=== PATIENT | male | born 1980 | race Caucasian/White ===

== ENCOUNTER 2020-03-10 09:51 | Outpatient (CLI) | payer MEDICARE, SELFPAY ==
[2020-03-10 10:43] LABS: Basophils Absolute Auto 0.1 K/mm3 (0.0-0.1); Basophils Percent Auto 0.8 % (0.2-1.2); Eosinophils Absolute Auto 0.2 K/mm3 (0-0.3); Hematocrit 44.2 % (42.0-52.0); Hemoglobin 15.2 g/dL (14.0-18.0); Immature Granulocyte Absolute 0.01 K/mm3 (0.00-0.031); Immature Granulocyte Percent A 0.2 % (0-0.5); Lymphocytes Absolute Auto 1.47 K/mm3 (0.9-3.2); Lymphocytes Percent Auto 24.6 % (18.3-44.2); Mean Corpuscular HGB Conc 34.4 g/dl (32-36); Mean Corpuscular Hemoglobin 30.7 pg (26-34); Mean Corpuscular Volume 89.3 fl (80-100); Mean Platelet Volume 9.7 fl (7.4-10.4); Monocytes Absolute Auto 0.6 K/mm3 (0.1-0.6); Monocytes Percent Auto 9.4 % (2.6-8.5); Neutrophils Absolute Auto 3.7 K/mm3 (1.3-6.7); Platelet Count Result 187 k/mm3 (150-375); Red Blood Count 4.95 M/mm3 (4.6-6.20); Red Cell Distribution Width 12.5 % (11.5-14.5)
[2020-03-10 10:58] LABS: Alanine Aminotransferase 55 U/L (4-50); Albumin Level 4.8 g/dL (3.5-5.1); Alkaline Phosphatase 65 U/L (38-126); Aspartate Amino Transferase 33 U/L (17-59); Bilirubin,Total 0.6 mg/dL (0.2-1.3); Blood Urea Nitrogen 15 mg/dL (9-20); Calcium 9.4 mg/dL (8.4-10.2); Carbon Dioxide 27 mmol/L (22-30); Chloride 102 mmol/L (98-107); Cholesterol 205 mg/dL (0-200); Estimated Glomerular Filt Rate > 60; Glucose 88 mg/dL (75-110); HDL Direct 50 mg/dL; Potassium 4.4 mmol/L (3.4-5.0); Sodium 138 mmol/L (137-145); Triglycerides 76 mg/dL (<150)
[2020-03-10 11:12] LABS: LDL Cholesterol Direct 129 mg/dL
[2020-03-10 11:23] LABS: Free T4 Free Thyroxine 0.95 ng/mL (0.78-2.19); Vitamin D 25 Hydroxy 58.2 ng/mL
[2020-03-10 11:30] LABS: Total Triiodothyronine (T3) 1.62 NG/ML (0.97-1.69)
[2020-03-13 16:51] LABS: Testosterone Free 87.4 pg/mL (35.0-155.0); Testosterone Total 560 ng/dL (250-1100)
== END 2020-03-10 09:52 | disposition home or self-care (01) ==
PROVIDERS: PCP Family Medicine
DX: F20.9 Schizophrenia, unspecified (principal); N52.9 Male erectile dysfunction, unspecified; E55.9 Vitamin D deficiency, unspecified
CPT/HCPCS: 36415; 80053; 80061; 82306; 84402; 84403; 84439; 84443; 84480; 85025

== ENCOUNTER 2020-03-23 08:00 | Outpatient (RCR) | payer MEDICARE, SELFPAY ==
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
--- NOTE | 2020-03-28 12:51 | PCPTNOTE ---
Patient called & cancelled all his remaining scheduled appointment this date due to he feels he is better and does not need therapy.
--- NOTE | 2020-03-28 13:17 | PCPTNOTE ---
Admitting Provider: Attending Provider: Anthony Morgan MD Patient:Edmund Pinto Date of :1980 Discharge Note Patient has not returned for any further treatments since 03/23/2020, therefore he will be discharged at this time. Patient?s initial visit was on 03/17/2020 10:45 and he had a total of 2 visits. The goals have been not been met due to limited visits attended. Thank you for referring this patient to [facility]. Please review, sign, date and return this discharge summary ZULEYKA. I have been updated about the patient's current status and I agree with discharge from the above service at this time. Referring Physician Date
== END 2020-03-28 15:43 | disposition home or self-care (01) ==
LOC: ANHPT 08:00
PROVIDERS: PCP Family Medicine; Visit Provider Family Medicine
DX: M54.5 Low back pain (principal)
CPT/HCPCS: 97110; 97161

== ENCOUNTER 2020-09-01 08:09 | Emergency (ER) | payer MEDICARE, SELFPAY ==
[2020-09-01 08:18] VITALS: BP 120/75; PULSE 73; RESP 16; TEMP 36.8; O2SAT 100
--- NOTE | 2020-09-01 09:26 | ED.BACK ---
HPI - Back Pain/Injury General Chief Complaint: Back Pain/Injury Stated Complaint: back pain Time Seen by Provider: 09/01/20 08:19 History of Present Illness HPI Narrative: Patient is a 39-year-old male who presents ER with low back pain. Reports he has been working on a car at home that is caused him to be in awkward positions for hours at a time. No direct trauma or injury. No lower extremity numbness or tingling. No difficulty with urination. Reports has been trying ibuprofen without relief. Reports its more on the right side than left. It seems deeper in his back. No urinary frequency/dysuria. Related Data Home Medications Medication Instructions Recorded Confirmed aripiprazole [Abilify Maintena] mg IM 09/01/20 Allergies Allergy/AdvReac Type Severity Reaction Status Date / Time No Known Allergies Allergy Verified 09/01/20 08:24 Review of Systems Constitutional: Constitutional: Denies chills, Denies fever(s) and Denies weakness Genitourinary: Genitourinary: Denies dysuria and Denies urinary frequency Musculoskeletal: Musculoskeletal: Reports back pain and Reports muscle cramps PMFSH Past Medical History Medical History (Updated 09/01/20 @ 09:28 by Sylvester Roque MD) Schizophrenia Surgical History Surgical History (Updated 09/01/20 @ 09:27 by Sylvester Roque MD) No history of previous surgery Social History Social History Gender identity (if verbalized by the patient): Male Exam Narrative: Exam Narrative: GENERAL: Well-appearing, well-nourished, and in no acute distress. HEAD: Normocephalic, atraumatic. CHEST: Clear to auscultation. No respiratory distress. HEART: Regular rate and rhythm. Normal peripheral pulses. BACK: No reproducible midline or paraspinal muscular tenderness. No visual evidence of trauma. Extremities: Normal strength, ambulates without difficulty. SKIN: Warm, dry, no rash. NEURO: Alert and oriented x3. Course Course Emergency Course: Discharge home with supportive therapy. No trauma midline tenderness or need for x-ray. Vital Signs Vital signs: Vital Signs Temperature 98.2 F 09/01/20 08:18 Pulse Rate 73 09/01/20 08:18 Respiratory Rate 16 09/01/20 08:18 Blood Pressure 120/75 09/01/20 08:18 Pulse Oximetry 100 09/01/20 08:18 Temperature 98.2 F 09/01/20 08:18 Pulse Rate 73 09/01/20 08:18 Respiratory Rate 16 09/01/20 08:18 Blood Pressure 120/75 09/01/20 08:18 Pulse Oximetry 100 09/01/20 08:18 Discharge Plan Discharge Clinical Impression: Strain of lumbar region Patient Disposition: Home, Self-Care Condition: Stable Instructions: Acute Low Back Pain (ED), Lower Back Exercises (ED) Additional Instructions: Return to the ER if you have increased pain in your back, you develop lower extremity weakness/numbness/paralysis, you have numbness or tingling in your private parts, or you are unable to control your ability to urinate/stool. Prescriptions: New cyclobenzaprine 10 mg tablet 10 mg PO TID PRN (Reason: muscle spasm) Qty: 20 RF: 0 naproxen 500 mg tablet 500 mg PO BID Qty: 20 RF: 0 No Action Abilify Maintena 400 mg suspension,extended rel recon IM RF: 0 Follow-up/Referrals: Anthony Morgan MD [Primary Care Provider] - 1 Week
== END 2020-09-01 09:34 | disposition home or self-care (01) ==
PROVIDERS: Emergency Provider Emergency Medicine; PCP Family Medicine
DX: S39.012A Strain of muscle, fascia and tendon of lower back, initial encounter (principal); X50.1XXA Overexertion from prolonged static or awkward postures, initial encounter; F20.9 Schizophrenia, unspecified
CPT/HCPCS: 99283

== ENCOUNTER 2021-04-01 14:50 | Emergency (ER) | payer MEDICARE, SELFPAY ==
--- NOTE | ~2021-04-01 | XR_ITS ---
EXAMINATION: XR shoulder RT min 2V DATE: 04/01/2021 15:23 INDICATION: Right shoulder dislocation. Right shoulder pain. TECHNIQUE: 4 views of right shoulder were obtained. COMPARISON: None. FINDINGS: Bone alignment is normal. No fracture. Joint spaces are well maintained. IMPRESSION: 1. Normal right shoulder. Reviewed, dictated and finalized at location A. IMPRESSION: 1. Normal right shoulder.
[2021-04-01 14:51] VITALS: BP 124/87; PULSE 86; RESP 18; TEMP 36.4; O2SAT 98
--- NOTE | 2021-04-01 15:19 | ED.GENADULT ---
HPI - General Adult General Chief complaint: Extremity Injury, Lower Stated complaint: shoulder dislocation yesterday, ongoing pain today Time Seen by Provider: 04/01/21 15:00 Source: patient and RN notes reviewed Mode of arrival: ambulatory Limitations: no limitations History of Present Illness HPI narrative: 40 years old white male presented to the ED with right shoulder pain. Patient is telling me that he was playing martial art, somehow the ball of his right shoulder came out and was able to manage to put it back in 1 minute. Currently no dislocation but patient complaining of soreness at the right shoulder. Patient denies history of dislocation. Currently denies any fever, chills, nausea, vomiting, chest pain, back pain, headache, neck pain. Related Data Home Medications Medication Instructions Recorded Confirmed aripiprazole [Abilify Maintena] mg IM 09/01/20 Allergies Allergy/AdvReac Type Severity Reaction Status Date / Time No Known Allergies Allergy Verified 09/01/20 08:24 Review of Systems Review of Systems: Narrative: CONSTITUTIONAL: Denies fever, chills, or sweats. EYES: Denies visual changes, redness, or discharge. ENT: Denies rhinorrhea, congestion, sore throat, or otalgia. CARDIOVASCULAR: Denies chest pain, palpitations, or edema. RESPIRATORY: Denies cough or dyspnea. GASTROINTESTINAL: Denies abdominal pain, nausea, vomiting, or diarrhea. GENITOURINARY: Denies dysuria or hematuria. SKIN: Denies rash or itching. MUSCULOSKELETAL: Denies back pain, joint pain, or myalgia. NEUROLOGIC: Denies headache, numbness, or weakness. PSYCHIATRIC: Denies anxiety or depression. PMFSH Past Medical History Medical History Schizophrenia Surgical History Surgical History No history of previous surgery Social History Social History Gender identity (if verbalized by the patient): Male Exam Narrative: Exam Narrative: General appearance: Well-developed, well-nourished Skin: Normal color Head: Normocephalic, nontraumatic Chest and respiratory: Airway patent, no respiratory distress, no accessory muscle use Heart: Regular rate/rhythm Vascular: Normal peripheral pulses, normal capillary refill. Musculoskeletal: Slight diffuse tenderness right shoulder mainly anteriorly, no deformity, no swelling, no erythema or warmth Neurologic: Alert and oriented ?3, CLINICAL DATA COORDINATOR is normal as tested, no gross motor deficit Course Course Emergency Course: Stable, x-ray right shoulder ordered. Further plan to follow Vital Signs Vital signs: Vital Signs Temperature 36.4 C 04/01/21 14:51 Pulse Rate 86 04/01/21 14:51 Respiratory Rate 18 04/01/21 14:51 Blood Pressure 124/87 04/01/21 14:51 Pulse Oximetry 98 04/01/21 14:51 Temperature 36.4 C 04/01/21 14:51 Pulse Rate 86 04/01/21 14:51 Respiratory Rate 18 04/01/21 14:51 Blood Pressure 124/87 04/01/21 14:51 Pulse Oximetry 98 04/01/21 14:51 Medical Decision Making MDM Narrative Medical decision making narrative: X-ray right shoulder ordered. Post dislocation shoulder pain. Shoulder embolization, follow-up with Ortho for physical therapy management. Differential Diagnosis Differential Diagnosis: Post dislocation syndrome Vital Signs Vital Signs: Vital Signs Temperature 36.4 C 04/01/21 14:51 Pulse Rate 86 04/01/21 14:51 Respiratory Rate 18 04/01/21 14:51 Blood Pressure 124/87 04/01/21 14:51 Pulse Oximetry 98 04/01/21 14:51 Temperature 36.4 C 04/01/21 14:51 Pulse Rate 86 04/01/21 14:5
== END 2021-04-01 15:52 | disposition home or self-care (01) ==
PROVIDERS: Emergency Provider Emergency Medicine; PCP Family Medicine
DX: S43.004A Unspecified dislocation of right shoulder joint, initial encounter (principal); F20.9 Schizophrenia, unspecified; X50.9XXA Other and unspecified overexertion or strenuous movements or postures, initial encounter; Y93.75 Activity, martial arts
CPT/HCPCS: 73030; 99283; A4565

== ENCOUNTER 2021-06-29 08:25 | Outpatient (CLI) | payer MEDICARE, SELFPAY ==
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
== END 2021-06-29 08:26 ==
PROVIDERS: PCP Family Medicine; Visit Provider Nurse Practitioner
DX: M47.814 Spondylosis without myelopathy or radiculopathy, thoracic region (principal); M47.816 Spondylosis without myelopathy or radiculopathy, lumbar region
CPT/HCPCS: 72070; 72100

== ENCOUNTER 2022-10-17 08:25 | Day surgery (SDC) | payer MEDICARE, SELFPAY ==
[2022-10-08 10:03] VITALS: BMI 27.5
--- NOTE | 2022-10-08 10:23 | SUR.PREOP ---
DURING PREOP PHONE INTERVIEW, PT STATED HE HAD ANOTHER LIPOMA ON HIS BACK THAT HE WOULD LIKE DR ROBLES TO REMOVE. I ASKED PT IF HE DISCUSSED THIS AT HIS LAST APPT WITH DR ROBLES ON 09/25. PT STATED HE DID NOT. INSTRUCTED PT TO CALL DR TOPETE OFFICE TODAY REGARDING ADDING ANOTHER MASS REMOVAL ON HIS BACK FOR DOS. PT VERBALIZED UNDERSTANDING.
--- NOTE | 2022-10-16 09:43 | P.PNAN_ITS ---
Anes - Initial Pre Proc Eval Procedure: Operation Date: 10/17/22 10:30 Proposed Procedures p Excisional Biopsy Subcutaneous Mass-Right Upper Extremity x3 - Zaida Brown MD s Excisional Biopsy Subcutaneous Mass-Left Abdominal Wall - Zaida Brown MD s Excisional Biopsy Subcutaneous Mass-Left Thigh - Zaida Brown MD Date/Time: 10/16/22 09:43 Surgeon: Zaida Brown MD Pre Op Diagnosis: Multiple Suqutaneous Masses Patient Data Age: 41 Gender: M Height: 1.83 m Weight: 92 kg Allergies Allergy/AdvReac Type Severity Reaction Status Date / Time No Known Allergies Allergy Verified 10/17/22 09:16 Home Medications Medication Instructions Recorded Confirmed Type aripiprazole 400 mg intramuscular 400 mg IM MONTHLY 09/01/20 10/17/22 History suspension,extended release (Abilify Maintena) hydrocodone 5 mg-acetaminophen 325 1 tablet PO Q6H PRN pain #20 tabs 10/17/22 Rx mg tablet Patient hx anesthesia problems: none Family hx anesthesia problems: none Results Review: All pre-operative results and documents have been reviewed as part of the pre- operative evaluation. [facility] Past Medical History Medical History (Updated 09/25/22 @ 10:32 by Pavithra Silvestre CMA) Lipoma Schizophrenia Surgical History Surgical History (Updated 09/25/22 @ 09:53 by Ciara Felder) Hx of hemorrhoidectomy No history of previous surgery Hemorrhoid banding in 2017 Family History Family History Grandparent Alcoholism Cancer Hypertension Heart problem Cerebrovascular accident Social History Social History (Updated 09/25/22 @ 09:54 by Ciara Felder) Years smoked: 20 Smoking status: Current every day smoker Tobacco type: cigarettes and cigars Smokeless tobacco user: other Second hand tobacco smoke exposure: Yes Additional smoking assessment comments: PT STATES HE HAS SMOKE CIGARS FOR 6 MONTHS, PRIOR TO THAT DAILY CIGARETTES Alcohol intake: never Substance use: current Substance use type: marijuana Last use: DAILY Gender identity (if verbalized by the patient): Male Spiritual care concerns: No Anes - Eval Final PreProcedure Day of Procedure 10/16/22 09:43 Patient weight: overweight Heart: regular rate and rhythm Lungs: clear to auscultation Airway: Mallampati scale class II Neurological: alert and oriented Last oral intake: >/= 8 hours ASA classification: III Emergent: no Anesthetic plan: proceed Anesthesia type and monitoring: general GIVS and standard monitoring Results Review: All pre-operative results and documents have been reviewed as part of the pre- operative evaluation. Informed Consent: The patient's anesthetic plan and its attendant risks and benefits were discussed with the patient/family/POA. Questions were solicited and answers provided to the satisfaction of the patient/family/POA.
[2022-10-17 09:10] VITALS: BP 123/93; PULSE 69; RESP 20; TEMP 36.9; O2SAT 99
[2022-10-17] MEDS: LACTATED RINGERS 1,000 ML 150 ML IV CONT (09:28)
[2022-10-17] MEDS: LACTATED RINGERS 1,000 ML 30 ML IV CONT (09:45)
--- NOTE | 2022-10-17 10:13 | WPDHPUPDATE1 ---
History and Physical Update Update Date/Time: 10/17/22 10:13 History and Physical has been reviewed, including an updated exam of the patient. There are NO changes in the patient's condition. Risks, benefits, and alternatives have been discussed and questions answered. Patient agrees to proceed with procedure. There is an additional mass in the L flank
[2022-10-17] MEDS: ceFAZolin 2 GM/D5W 50 ML 2 GM/50 ML BAG IVPB (11:01)
[2022-10-17] MEDS: LIDO 1%/EPINEPHRINE 1:100,000 20 ML VIAL 30 ML INFILTRATE (11:03)
[2022-10-17 11:18] VITALS: BP 104/62; PULSE 68; RESP 16; O2SAT 100
[2022-10-17 11:35] VITALS: BP 101/61; PULSE 62; RESP 16; O2SAT 99
[2022-10-17 11:50] VITALS: BP 107/62; PULSE 64; RESP 16
--- NOTE | 2022-10-17 12:03 | W.PM.PROC2 ---
Procedure Note - Detailed Date of Procedure 10/17/22 Pre-op Diagnosis Multiple subcutaneous masses, most likely lipomas Post-op Diagnosis Same Procedure Performed excisional biopsy multiple subcutaneous masses located in the left flank, left lower abdominal wall, left anterior thigh, right elbow, right forearm Surgeon Zaida Brown MD Anesthesia MAC and Local Indications 41-year-old male presenting to the office with multiple growing subcutaneous masses. Reports these are quite symptomatic especially to pressure or palpation. Findings 1 x 1 cm left flank mass, 1 x 1 cm left lower quadrant abdominal wall mass, 1 x 1 cm left anterior thigh mass, 2 x 1 cm right elbow mass, 2.5 x 2 cm right forearm mass Description of Procedure The patient was taken to the operating room and placed in the supine position. After adequate induction of MAC anesthesia, the patient was prepped and draped in the normal sterile fashion. A time-out was then done to verify the patient's identity, as well as the procedure being performed. Began by localizing all these areas. Once these areas were locally anesthetized, I went ahead and marked all the areas. I began by excising the area in the left flank. A incision was made in the dermis over the subcutaneous mass. Once into the subcutaneous tissue a well-circumscribed mass was encountered and excised. I then gained hemostasis with the Bovie cautery. Subcutaneous tissue was closed with 3-0 Vicryl suture, skin was closed with 4-0 Monocryl subcuticular suture. This mass measured approximately 1 x 1 cm. Next I made incision over the left lower quadrant abdominal wall mass. Again the incision was made through the dermis and once into the subcutaneous tissue a 1 x 1 cm mass was encountered. This was again removed in full and subsequently closed as before. The left thigh mass was then excised in similar fashion again measuring 1 x 1 cm. I then made an incision in the right forearm this mass was slightly larger at 2 x 1 cm. Finally the last incision was made around the area of the right elbow this mass was the largest measuring 2.5 x 2 cm. All these masses were sent to pathology for further review and all incisions had Dermabond placed after closure. The patient tolerated these procedures well and was alert and awake in the operating room postoperatively. He will be sent to the recovery room in stable condition. Estimated Blood Loss 5 Drains No Packing No Pathology Yes Complications No immediate complications Condition Stable Disposition PACU [facility] Billing Surgery - Charge Forward: Surgery Billing
--- NOTE | 2022-10-17 12:03 | SUR.PHASEII ---
PT AWAKE AND ALERT. PT GETTING DRESSED. ASKED PT TO GO SLOW DUE TO ANESTHESIA. DENIES PAIN. ASKING TO GO HOME
--- NOTE | 2022-10-17 12:08 | SUR.PHASEII ---
NOTICED IN DISCHARGE INSTRUCTIONS THAT PRESCRIPTION FROM DR ROBLES WAS REJECTED. CALLED DR ROBLES CELL, VM LEFT.
--- NOTE | 2022-10-17 12:34 | SUR.PHASEII ---
1210; PT AND SIG OTHER INFORMED THAT DR ROBLES ATTEMPTED TO SEND A SCRIPT FOR PAIN MED TO PT'S PHARMACY AND IT WAS REJECTED. ALSO THAT RN CALLED DR ROBLES AND LEFT A VM ON HIS CELL PHONE. PT VERBALIZED UNDERSTANDING. PT STATES HE HAS MARIJUANA AT HOME HE CAN USE. DR CAMPBELL CALLED OVER TO PT ROOM, NOTIFIED OF PT WANTING TO USE MARIJUANA TODAY, DR CAMPBELL INSTRUCTED PT NOT TO USE TODAY. PT VERBALIZED UNDERSTANDING.
--- NOTE | 2022-10-17 12:55 | WPDANESPN ---
Anes - Prog Note Post-Op Date/Time: 10/17/22 12:55 Cardiovascular status: normal Respiratory status: normal Airway patency: baseline Mental status: baseline Post-Op hydration status: normal Vital Signs: Last Vital Signs Temp 36.9 C 10/17/22 09:10 Pulse 64 10/17/22 11:50 Resp 16 10/17/22 11:50 BP 107/62 10/17/22 11:50 Pulse Ox 99 10/17/22 11:35 O2 Del Method Room Air 10/17/22 11:50 Pain Score (VAS): 0 I/O: Intake & Output 10/16/22 10/17/22 10/17/22 23:59 07:59 15:59 Intake Total 100 Balance 100 Post-procedural complaints: none Patient Feedback: Patient satisfied with anesthetic care. Other Findings: Patient vital signs back to baseline. Patient denies nausea and vomiting. Patient's pain under control. Patient OK for discharge.
== END 2022-10-17 12:15 | disposition home or self-care (01) ==
PROVIDERS: PCP Internal Medicine; Visit Provider Surgery
PROC: (CPT 27327; principal; 2022-10-17 10:30)
PROC: (CPT 27327; 2022-10-17 10:30)
PROC: (CPT 27327; 2022-10-17 10:30)
DX: R22.9 Localized swelling, mass and lump, unspecified (principal)
CPT/HCPCS: 27327; 25075; 21930; 22902; 24075

== ENCOUNTER 2022-10-17 09:00 | Outpatient (NON) | payer MEDICARE, SELFPAY | END 2022-10-17 09:01 | disposition home or self-care (01) | PROVIDERS: PCP Internal Medicine; Visit Provider Surgery | DX: D17.30 Benign lipomatous neoplasm of skin and subcutaneous tissue of unspecified sites (principal) | CPT/HCPCS: 88304 ==

== ENCOUNTER 2024-07-16 10:00 | Outpatient (CLI) | payer MEDICARE, SELFPAY ==
[2024-07-16 16:32] LABS: Basophils Absolute Auto 0.1 K/mm3 (0.0-0.1); Basophils Percent Auto 0.7 % (0.2-1.2); Eosinophils Absolute Auto 0.4 K/mm3 (0-0.3); Eosinophils Percent Auto 5.5 % (0-4.4); Hematocrit 44.6 % (42.0-52.0); Hemoglobin 14.8 g/dL (14.0-18.0); Immature Granulocyte Absolute 0.01 K/mm3 (0.00-0.031); Immature Granulocyte Percent A 0.1 % (0-0.5); Lymphocytes Absolute Auto 1.69 K/mm3 (0.9-3.2); Lymphocytes Percent Auto 23.2 % (18.3-44.2); Mean Corpuscular HGB Conc 33.2 g/dl (32-36); Mean Corpuscular Hemoglobin 30.8 pg (26-34); Mean Corpuscular Volume 92.7 fl (80-100); Monocytes Absolute Auto 0.6 K/mm3 (0.1-0.6); Monocytes Percent Auto 8.4 % (2.6-8.5); Neutrophils Absolute Auto 4.5 K/mm3 (1.3-6.7); Neutrophils Percent Auto 62.1 % (45.5-73.1); Platelet Count Result 240 k/mm3 (150-375); Red Blood Count 4.81 M/mm3 (4.6-6.20); Red Cell Distribution Width 12.9 % (11.5-14.5); White Blood Count 7.3 K/mm3 (4.5-10.0)
[2024-07-16 16:45] LABS: Alanine Aminotransferase 22 U/L (6-50); Albumin Level 4.6 g/dL (3.5-5.1); Alkaline Phosphatase 58 U/L (38-126); Anion Gap 8 mmol/L (4-12); Aspartate Amino Transferase 48 U/L (17-59); Bilirubin,Total 0.6 mg/dL (0.2-1.3); Blood Urea Nitrogen 12 mg/dL (9-20); Calcium 9.5 mg/dL (8.4-10.2); Carbon Dioxide 28 mmol/L (22-30); Chloride 103 mmol/L (98-107); Cholesterol 196 mg/dL (0-200); Estimated Glomerular Filt Rate > 60; Glucose 88 mg/dL (65-110); HDL Direct 50 mg/dL; Sodium 139 mmol/L (137-145); Triglycerides 59 mg/dL (<150)
[2024-07-16 17:05] LABS: LDL Cholesterol Direct 104 mg/dL
== END 2024-07-16 10:01 | disposition home or self-care (01) ==
LOC: ANHGOSHLAB 10:01
PROVIDERS: PCP Nurse Practitioner; Visit Provider Nurse Practitioner
DX: K59.00 Constipation, unspecified (principal); F20.9 Schizophrenia, unspecified; Z13.220 Encounter for screening for lipoid disorders
CPT/HCPCS: 36415; 80053; 80061; 85025

== ENCOUNTER 2024-08-26 22:33 | Emergency (ER) | payer MEDICARE, SELFPAY ==
[2024-08-26 22:36] VITALS: BP 108/72; PULSE 68; RESP 18; TEMP 36.8; O2SAT 98
--- NOTE | 2024-08-27 00:49 | PC.NURSE ---
Pt states his chest pain has eased up and states he wants to go home. Pt left without being seen by provider.
== END 2024-08-27 00:49 | disposition left against medical advice (07) ==
DX: R07.9 Chest pain, unspecified (principal)
CPT/HCPCS: 99199

== ENCOUNTER 2024-09-11 13:57 | Emergency (ER) | payer MEDICARE, SELFPAY ==
[2024-09-11 14:09] VITALS: BP 118/72; PULSE 76; RESP 16; TEMP 36.4; O2SAT 99
--- NOTE | 2024-09-11 14:11 | ED_ITS ---
HPI - General Adult General Stated complaint: shoulder pain Time Seen by Provider: 09/11/24 14:11 Source: patient Mode of arrival: ambulatory Limitations: no limitations Related Data Home Medications Medication Instructions Recorded Confirmed aripiprazole 400 mg intramuscular 400 mg IM MONTHLY 09/01/20 07/15/24 suspension,extended release (Abilify Maintena) Allergies Allergy/AdvReac Type Severity Reaction Status Date / Time No Known Allergies Allergy Verified 07/15/24 11:40 Review of Systems Review of Systems: CONSTITUTIONAL: Denies fever, chills, or sweats. EYES: Denies visual changes, redness, or discharge. ENT: Denies rhinorrhea, congestion, sore throat, or otalgia. CARDIOVASCULAR: Denies chest pain, palpitations, or edema. RESPIRATORY: Denies cough or dyspnea. GASTROINTESTINAL: Denies abdominal pain, nausea, vomiting, or diarrhea. GENITOURINARY: Denies dysuria or hematuria. SKIN: Denies rash or itching. MUSCULOSKELETAL: Denies back pain, joint pain, or myalgia. NEUROLOGIC: Denies headache, numbness, or weakness. PSYCHIATRIC: Denies anxiety or depression. [facility] Past Medical History Medical History Lipoma Schizophrenia Surgical History Surgical History H/O excision of mass exc bx multiple SQ masses on 10/17/22 Hx of hemorrhoidectomy No history of previous surgery Hemorrhoid banding in 2017 Family History Family History Grandparent Alcoholism Cancer Hypertension Heart problem Cerebrovascular accident Social History Social History (Updated 07/15/24 @ 11:40 by Cande Gandara CMA) Years smoked: 20 Smoking status: Current every day smoker Tobacco type: e-cigarettes/vaping Smokeless tobacco user: other Second hand tobacco smoke exposure: Yes Additional smoking assessment comments: PT STATES HE HAS SMOKE CIGARS FOR 6 MONTHS, PRIOR TO THAT DAILY CIGARETTES Alcohol intake: never Substance use: current Substance use type: marijuana Last use: DAILY Lack of Transportation: No Lack of Food: Never True Concerned About Future Housing: No Difficulty Paying Gas/Electric Bills: No Difficulty Paying for Meds: No Currently Unemployed: No Education: High School Diploma/GED Difficulty w/ Childcare or Family Care: No Living arrangements: with family Gender identity (if verbalized by the patient): Male Spiritual care concerns: No Exam Narrative: GENERAL: Well-appearing, well-nourished, and in no acute distress. HEAD: Normocephalic, atraumatic. EYES: PERRLA and EOMI. ENT: Nares clear, no rhinorrhea or epistaxis. Mucous membranes moist. NECK: Supple. No lymphadenopathy CHEST: Clear to auscultation. No respiratory distress. HEART: Regular rate and rhythm. No murmur heard. Normal peripheral pulses. ABDOMEN: Soft, nontender, nondistended, normal active bowel sounds. EXTREMITIES: Normal range of motion. No edema. SKIN: Warm, dry, no rash. NEURO: No focal deficits. Alert and oriented x3. Course Course Level of Care: Express Care Visit Vital Signs Vital signs: Vital signs reviewed. Medical Decision Making Differential Diagnosis Differential Diagnosis: Differential diagnosis: Neurovascular compromise, anterior shoulder dislocation, posterior dislocation, facture, AC separation, shoulder cuff tear, bursitis, tendinitis Critical Care Time Critical Care Time Critical Care Time: No Discharge Plan Discharge Prescriptions: No Action Abilify Maintena 400 mg suspension,extended rel recon 400 mg IM MONTHLY Follow-up/Referrals: Nahum Jacques DO [Primary Care Provider] -
--- NOTE | 2024-09-11 14:21 | PC.NURSE ---
1417- pt came by nurses station and informed mila Payne he was leaving as his was mad he came to be seen. Reports he will f/u with his PCP.
== END 2024-09-11 14:21 | disposition left against medical advice (07) ==
PROVIDERS: Emergency Provider Internal Medicine Hematology & Oncology; PCP Internal Medicine
DX: Z53.21 Procedure and treatment not carried out due to patient leaving prior to being seen by health care provider (principal)
CPT/HCPCS: 99199

== ENCOUNTER 2025-02-09 09:55 | Outpatient (CLI) | payer MEDICARE, MEDICAID, SELFPAY ==
--- OUTSIDE RECORDS SUMMARY | 2025-02-09 10:50 | XMS_ITS | Patient Health Record ---
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 Role Phone Nahum Jacques DO Primary Care Provider Jyoti Bhakta Unavailable [phone] Addy Early Unavailable [phone] MillerKrunal benoit Unavailable [phone] RicardoStephanie rosa Unavailable [phone] Migration, Provider Unavailable Unavailable Allergies No Known Allergies Results Component Value Reference Range Notes UDT Reviewed date:10/13/2024 05:31:45 PM Interpretation: Performing Lab: Notes/Report: THC POS 0 - 50 ng/ml Cocaine NEG 0 - 300 ng/ml Amphetamine NEG 0 - 1000 ng/ml Buprenorphine (BUP) NEG 0 - 10 ng/ml Secobarbital (Bar) NEG 0 - 300 ng/ml Oxazepam (BZO) NEG 0 - 300 ng/ml 6-dprayfbxbb-5,6-zbyqogek-7,3-diphenylpyrrolidine (CINDY P) NEG 0 - 300 ng/ml Methamphetamine (MET) NEG 0 - 1000 ng/ml Methylenedioxymethamphetamine (MDMA) NEG 0 - 500 ng/ml Morphine (MOP 300/[id number]) NEG 0 - 300 ng/ml Methadone (MTD) NEG 0 - 300 ng/ml Phencyclidine (PCP) NEG 0 - 25 ng/ml Nortriptyline (TCA) NEG 0 - 1000 ng/ml Oxycodone NEG 0 - 300 ng/ml UDT Reviewed date:12/06/2024 11:44:53 AM Interpretation: Performing Lab: Notes/Report: THC POS 0 - 50 ng/ml Cocaine NEG 0 - 300 ng/ml Amphetamine NEG 0 - 1000 ng/ml Buprenorphine (BUP) NEG 0 - 10 ng/ml Secobarbital (Bar) NEG 0 - 300 ng/ml Oxazepam (BZO) NEG 0 - 300 ng/ml 0-gjxzoubjcq-6,1-lgyvcace-6,3-diphenylpyrrolidine (CINDY P) NEG 0 - 300 ng/ml Methamphetamine (MET) NEG 0 - 1000 ng/ml Methylenedioxymethamphetamine (MDMA) NEG 0 - 500 ng/ml Morphine (MOP 300/ROD2165) NEG 0 - 300 ng/ml Methadone (MTD) NEG 0 - 300 ng/ml Phencyclidine (PCP) NEG 0 - 25 ng/ml Nortriptyline (TCA) NEG 0 - 1000 ng/ml Oxycodone NEG 0 - 300 ng/ml x NEG 0 - 300 ng/ml Reason For Referral No Information Medications Medication SIG (Take, Route, Frequency, Duration) Notes Start Date End Date Status Sildenafil Citrate 25 MG Oral 02/06/2024 Active Abilify Maintena 400 MG as directed Intr amuscular Every Month for 30 days Active Social History Tobacco Use: Social History Observation Description Date Details (start date - stop date) Current Smoker NA - NA Sex Assigned At : Social History Observation Description Sex Assigned At Female Household Question Answer Notes Marital status: Tobacco Control (Standard) Question Answer Notes Tobacco use: Current smoker Problems Problem Type SNOMED Code ICD Code Onset Dates Problem Status W/U Status Risk Notes Problem Cannabis dependence (61723194) Cannabis dependence, uncomplicated (F12.20) Active confirmed Problem Undifferentiated schizophrenia (764384169) Undifferentiated schizophrenia (F20.3) Active confirmed Problem Compulsive gambling (18184369) Compulsive gambling (F63.0) Active confirmed Vital Signs Heart Rate 82 /min 01/10/2025 Height-cm 182.88 cm 01/10/2025 Blood pressure diastolic 78 mm Hg 01/10/2025 Weight-kg 87.36 kg 01/10/2025 Height 72.00 in 01/10/2025 Blood pressure systolic 120 mm Hg 01/10/2025 Weight 192.6 lbs 01/10/2025 BMI 26.12 kg/m2 01/10/2025 Encounters Encounter Location Date Provider Diagnosis [facility] [address] [facility] [address] [place] [address] 04/07/2024 Thena Ricardo [facility], [facility] [address] [place] [address] 03/08/2024 Thena Ricardo [facility], [facility] [address] [place] [address] 04/06/2024 Thena Ricardo Undifferentiated schizophrenia F20.3 [facility], [facility] [address] [place] [address] 05/07/2024 Thena Ricardo Undifferentiated schizophrenia F20.3 [facility], [facility] [address] [place] [address] 06/09/2024 Krunal Miller Undifferentiated schizophrenia F20.3 [facility], [facility] [address] [place] [address] 07/08/2024 Addy Sharath Undifferentiated schizophrenia F20.3 [facility], [facility] [address] [place] [address] 08/06/2024 Addy Sharath Undifferentiated schizophrenia F20.3 [facility], [facility] [address] [place] [address] 09/10/2024 Thena Ricardo [facility], [facility] [address] [place] [address] 09/10/2024 Thena Ricardo Undifferentiated schizophrenia F20.3 [facility], [facility] [address] [place] [address] 10/13/2024 Addy Sharath Undifferentiated schizophrenia F20.3 [facility], [facility] [address] [place] [address] 11/08/2024 Jyoti Renetta Undifferentiated schizophrenia F20.3 [facility], [facility] [address] [place] [address] 12/02/2024 Thena Ricardo [facility], [facility] [address] [place] [address] 12/06/2024 Jyoti Renetta Undifferentiated schizophrenia F20.3 [facility], [facility] [address] [place] [address] 12/08/2024 Jyoti Renetta Undifferentiated schizophrenia F20.3 ; Cannabis dependence, uncomplicated F12.20 and Compulsive gambling F63.0 [facility], [facility] [address] [address] 01/10/2025 Jyoti Jackson On director long term care drug therapy V58.69 ; Undifferentiated schizophrenia F20.3 and Encounter for screening for cardiovascular disorders Z13.[address] [address] 02/21/2024 Provider Migration [address] [address] 02/22/2024 Provider Migration [address] [address] 05/07/2024 Thena Ricardo Undifferentiated schizophrenia F20.[address] [address] 07/05/2024 Thena Ricardo Undifferentiated schizophrenia F20.[address] [address] 08/02/2024 Thena Ricardo Assessments Encounter Date Diagnosis (ICD Code) Assessment Notes Treatment Notes Treatment Clinical Notes Section Notes 05/07/2024 Undifferentiated schizophrenia (ICD-10 - F20.3) 05/07/2024 Undifferentiated schizophrenia (ICD-10 - F20.3) 06/09/2024 Undifferentiated schizophrenia (ICD-10 - F20.3) 08/06/2024 Undifferentiated schizophrenia (ICD-10 - F20.3) 09/10/2024 Undifferentiated schizophrenia (ICD-10 - F20.3) 10/13/2024 Undifferentiated schizophrenia (ICD-10 - F20.3) 12/08/2024 Undifferentiated schizophrenia (ICD-10 - F20.3) Diagnosed with schizophrenia in 2010, however reports history of substance use and current cannabis use. Does not recall a psychotic episode that has been present outside of substance use, however previous records are limited from previous admissions due to length of time and in different states. -Differential diagnosis includes substance induced psychosis. However only way to differentiate is to wean off of antipsychotic after discontinuing cannabis use. Patient declined medication adjustment today and would like to continue Abilify injections due to director long term care stability. 01/10/2025 Undifferentiated schizophrenia (ICD-10 - F20.3) Verified the injection dose and diagnosis 01/10/2025 On director long term care drug therapy (ICD9-CM - V58.69) Verified the injection dose and diagnosis 11/08/2024 Undifferentiated schizophrenia (ICD-10 - F20.3) Verified the injection dose and diagnosis 12/06/2024 Undifferentiated schizophrenia (ICD-10 - F20.3) Verified the injection dose and diagnosis 12/08/2024 Cannabis dependence, uncomplicated (ICD-10 - F12.20) 07/05/2024 Undifferentiated schizophrenia (ICD-10 - F20.3) 07/08/2024 Undifferentiated schizophrenia (ICD-10 - F20.3) 04/06/2024 Undifferentiated schizophrenia (ICD-10 - F20.3) 01/10/2025 Encounter for screening for cardiovascular disorders (ICD-10 - Z13.6) Verified the injection dose and diagnosis 12/08/2024 Compulsive gambling (ICD-10 - F63.0) Compulsive gambling that started around 2017, which was several years after starting Abilify however was not present prior to being on Abilify. Discussd BBW on Abilify for gambling addiction. 12/08/2024 Other Continue Abilify Maintena 400mg monthly, encouraged to schedule for upcoming injections, most recent injection on 12/06/2024. Offered to start naltrexone 50mg daily for gambling, pt declined at this time as he does not want to take additional medication. Patient educated on all medications including potential benefits, side effects, risks. Educated on proper dosing schedule and importance of compliance. -Assessment and treatment plan reviewed with patient. -Compliance with treatment plan importance discussed. -Discussed the risks/benefits of this medication -Discussed medication side effects. -Contact office if symptoms worsen. -Discussed that it can take up to 6-8 weeks to see full therapeutic effects of psychotropic medications. -Crisis prevention hotline 998. Plan Of Treatment Next Appt Details Provider Name:Addy Early , 02/09/2025 04:30:00 PM, [address], [facility] [address] [place], [address], Provider Name:Jyoti Jackson, 03/09/2025 10:30:00 AM, [address], [address] [place], [address], Insurance Providers Payer Name Payer Address Payer Phone Subscriber Number Group Number Insured Name Patient Relationship to Insured Coverage Start Date Coverage End Date [employer] Medicare Replacement/ Advantage - [employer] [address] [address] [place] [address] [id number] BRI PRASAD Self - patient is the insured Medications Administered Medication Instructions Date of Administration Dosage Notes Abilify Maintena 03/08/2024 400 mg Abilify Maintena 04/06/2024 400 mg Abilify Maintena 05/07/2024 400 mg Abilify Maintena 06/09/2024 400 mg Abilify Maintena 07/08/2024 400 mg Abilify Maintena 08/06/2024 400 mg Abilify Maintena 09/10/2024 400 mg Injectio n was given to patient in his right arm by Raisa Zhang with no problems. Patient tolerated procedure well. Abilify Maintena 10/13/2024 400 mg Patient did not have a RX here. I used one of our sample doses today. Abilify Maintena 11/08/2024 400 mg Lot # [id number] Abilify Maintena 12/06/2024 400 mg Abilify Maintena 01/10/2025 400 mg Medical (General) History Medical History History ICD Code Problems: Anxiety disorder Cannabis dependence, continuous Cannabis withdrawal Erectile dysfunction Generalized anxiety disorder Nicotine dependence Nicotine dependence with current use Undifferentiated schizophrenia , Surgical History Surgery Date(Month/Year) Any surgical history 04/05/2022
--- NOTE | 2025-03-04 11:30 | WPDSLEEPSTUD ---
Sleep Study Date of Study: 02/09/25 Ordering Provider: Brenda Rangel NP Interpreting Physician: Basia Topete MD Sleep Study Type: Split Polysomnogram Height: 1.83 m Weight: 86.183 kg Body Mass Index: 25.7 Neck Circumference (inches): 16 [place]: 0 Reason for Sleep Study Snoring, daytime hypersomnia * 10/13/2024, home sleep test using WatchPat; AHI (pAHI3%) 8.7; AHI (pAHI 4%) 4.0 which is below treatment criteria, desaturation to 90%; patient returns for a split night study Sleep History Edmund Pinto is a 44-year-old man with excessive daytime sleepiness. He underwent a home sleep test in October 2024, he met criteria for mild sleep apnea using a 3% criteria, AHI 8.7. His AHI using 4% criteria was 4.0, and did not meet criteria to be diagnosed with obstructive sleep apnea. He returns this time for split night study to determine if he has sleep disordered breathing and to treat it. He did not complete a sleep questionnaire so some information that would be helpful is not available. The patient voiced some complaints during his night at the sleep lab and the electrical power station technician wrote these down. This included that he cannot breathe with a nasal mask, so he was switched to a full face mask. He stated that he could not breathe with CPAP so he was switched to BiPAP for comfort. He stated that he could not sleep on his back with the BiPAP on his face, the chest belts in the EKG leads were giving him chest pain. The tech replaced his equipment with new EKG stickers for comfort. She took excellent care the patient, tried to make him as comfortable as possible during the sleep study. [facility] Past Medical History Medical History (Updated 03/04/25 @ 11:48 by Basia Topete MD) Excessive daytime sleepiness Establishing care with new doctor, encounter for Right shoulder pain Back pain Pain in testicle Rectal pain Epigastric pain Lipoma Schizophrenia Surgical History Surgical History H/O excision of mass exc bx multiple SQ masses on 10/17/22 Hx of hemorrhoidectomy No history of previous surgery Hemorrhoid banding in 2017 Family History Family History Grandparent Alcoholism Cancer Hypertension Heart problem Cerebrovascular accident Social History Social History Years smoked: 20 Smoking status: Current every day smoker Tobacco type: e-cigarettes/vaping Smokeless tobacco user: other Second hand tobacco smoke exposure: Yes Additional smoking assessment comments: PT STATES HE HAS SMOKE CIGARS FOR 6 MONTHS, PRIOR TO THAT DAILY CIGARETTES Alcohol intake: never Substance use: current Substance use type: marijuana Last use: DAILY Lack of Transportation: No Lack of Food: Never True Concerned About Future Housing: No Difficulty Paying Gas/Electric Bills: No Difficulty Paying for Meds: No Currently Unemployed: No Education: High School Diploma/GED Difficulty w/ Childcare or Family Care: No Living arrangements: with family Gender identity (if verbalized by the patient): Male Spiritual care concerns: No Medications Home Medications ?Medication ?Instructions ?Recorded ?Confirmed ?Type aripiprazole 400 mg intramuscular 400 mg IM MONTHLY 09/01/20 01/05/25 History suspension,extended release (Abilify Maintena) triamcinolone acetonide 0.1 % 1 applic topical BID #30 grams 09/16/24 01/05/25 Rx topical cream AutoPAP 5-15 cm H2O, CPAP #1 ea 11/03/24 01/05/25 Rx mask/filters/tubing and heated humidity Sleep Procedure A split night polysomnogram using the [employer] SleepUNX multi-channel system recorded the standard physiologic parameters including EEG, EOG, submentalis EMG, anterior tibialis EMG, EKG, body position, nasal and oral airflow using nasal pressure sensor and thermistor. Respiratory parameters of chest and abdominal movements were recorded with Respiratory Inductance Plethysmography belts. Oxygen saturation was recorded by pulse oximetry. Video monitoring was also performed. Sleep stages, periodic limb movements, and EEG arousals were scored in 30 second epochs according to the criteria of the AASM Scoring Manual. The Apnea-Hypopnea Index was calculated using CMS guidelines for definition of hypopnea while scoring respiratory events. After the baseline portion the patient met criteria for a titration with an AHI of 19.8 (pAHI 4%) and desaturation to 85%. He used a medium [employer] Solo nasal pillows with initial pressure of CPAP 5 but could not tolerate CPAP so was immediately switched to BiPAP 8/4, had difficulty sleeping especially on his back. BiPAP was titrated to 9/5, 10/5, 10/6, 11/7 and 12/7. On BiPAP 10/6, the patient had 48.5 minutes in bed, 1.5 minutes awake, 15 minutes in non-REM and 32 minutes in REM. His sleep efficiency was 96.9%. His residual apnea-hypopnea index was 20.4. The majority of the events were central and mixed apneas which will resolve once he acclimate to using regular PAP therapy. Another possible acceptable treatment is BiPAP 11/. He spent 32 minutes at that pressure, 100% the time in non REM. His residual apnea-hypopnea index was 9.4 composed of 3 centrals and 2 mixed apneas. His arousal index was also low at that setting. Sleep Architecture During the diagnostic portion of the study, the total recording time was 258.3 minutes. The total sleep time was 212.5 minutes. Sleep latency was 6.8 minutes. REM latency was 93.0 minutes. Sleep Efficiency was 82.3%. The patient had 36 awakenings for an awakening index of 10.2. Wake after sleep onset time was 39.0 minutes. The patient spent 26.0 minutes, 12.2% of total sleep time in Stage N1. The patient spent 114.0 minutes, 53.6% in Stage N2. The patient spent 58.0 minutes, 27.3% in Stage N3. The patient spent 14.5 minutes, 6.8% in Stage REM sleep. At 02:07:23 AM the patient was placed on PAP treatment, please see above for details. During the treatment portion of the study, the total recording time was 229.1 minutes. The total sleep time was 144.0 minutes. Sleep latency was 32.5 minutes. REM latency was 76.5 minutes. Sleep Efficiency was 62.8%. Wake after Sleep Onset time was 52.5 minutes. The patient spent 30.5 minutes, 21.2% of total sleep time in Stage N1. The patient spent 70.0 minutes, 48.6% in Stage N2. The patient spent 11.5 minutes, 8.0% in Stage N3. The patient spent 32.0 minutes, 22.2% in Stage REM. Respiratory Analysis During the diagnostic portion of the study, the patient had 43 hypopneas, 3 obstructive apneas, 9 mixed apneas, and 15 central apneas for an overall Apnea Hypopnea Index of 19.8 events per hour. The REM Apnea Hypopnea Index was 0. The NREM Apnea Hypopnea Index was 21.2. The patient had a Central Apnea Hypopnea Index of 4.2. There were no Respiratory Effort Related Arousals. The Respiratory Disturbance Index is 27.4 events per hour. There was no evidence of [employer] Respirations. During the treatment portion of the study, the patient had 8 hypopneas, no obstructive apneas, 8 mixed apneas, and 99 central apneas for an overall Apnea Hypopnea Index of 47.9 events per hour. The REM Apnea Hypopnea Index was 5.6. The NREM Apnea Hypopnea Index was 60.0. The patient had a Central Apnea Hypopnea Index of 41.3. There were no Respiratory Effort Related Arousals. The Respiratory Disturbance Index is 47.9 events per hour. There was no evidence of [employer] Respirations. Arousals During the diagnostic portion of the study, there were a total of 106 arousals for an arousal index of 29.9. There were 47 respiratory arousals for an index of 13.3. There were 2 periodic limb movement arousals for an index of 0.6. There were 13 isolated limb movement arousals for an index of 3.7. There were 40 spontaneous arousals for an index of 11.3. During the treatment portion of the study, there were a total of 78 arousals for an index of 32.5. There were 42 respiratory arousals for an index of 17.5. There were no periodic limb movement arousals. There was 1 isolated limb movement arousal for an index of 0.4. There were 35 spontaneous arousals for an index of 14.6. Periodic Limb Movements During the diagnostic portion of the study, the patient had 26 isolated limb movements with an index of 7.3. The patient had 15 periodic limb movements with an index of 4.2. The patient had a total of 41 limb movements with a total limb movement index of 11.6. During the treatment portion of the study, the patient had 2 isolated limb movements with an index of 0.8. The patient had - periodic limb movements with an index of -. The patient had a total of 2 limb movements with a total limb movement index of 0.8. Oximetry Data During the diagnostic portion of the study, the patient had an average oxygen saturation of 92.9% in wake with a minimum oxygen saturation of 84% and a maximum oxygen saturation of 98%. The patient had an average oxygen saturation of 92.9% in sleep with a minimum oxygen saturation of 85% and a maximum oxygen saturation of 98%. The patient had 94 oxygen desaturations resulting in an Oxygen Desaturation Index of 26.5. The patient spent 10.2 minutes, 4% of total sleep time with an oxygen saturation less than 88%. During the treatment portion of the study, the patient had an average oxygen saturation of 95.4% in wake with a minimum oxygen saturation of 83% and a maximum oxygen saturation of 99%. The patient had an average oxygen saturation of 95.1% in sleep with a minimum oxygen saturation of 85% and a maximum oxygen saturation of 98%. The patient had 93 oxygen desaturations resulting in an Oxygen Desaturation Index of 38.8. The patient spent 5 minutes, 2.2% of total sleep time with an oxygen saturation less than 88%. Snoring Profile Snoring was was moderate, improved and eliminated during the titration. Cardiac Profile During the diagnostic portion of the study, the EKG showed normal sinus rhythm, average pulse rate was 54.5 bpm, minimum pulse rate was 41 bpm, maximum pulse rate was 92 bpm. No arrhythmias noted. During the treatment portion of the study, the EKG showed normal sinus rhythm. The average pulse rate was 49.8 bpm, minimum pulse rate was 41 bpm, maximum pulse rate was 86 bpm. No arrhythmias noted. EEG Profile EEG was unremarkable, no evidence of seizures. Assessment and Plan Assessment and Plan (1) NELLY (obstructive sleep apnea): Code(s): G47.33 - Obstructive sleep apnea (adult) (pediatric) Status: Acute Assessment and Plan: This split night sleep study on 02/09/2025 shows moderate obstructive sleep apnea, the baseline portion showed an elevated apnea-hypopnea index 19.8 (pAHI 4%) with desaturation 85%, much more severe in supine sleep, the supine index is 28.3 compared to nonsupine 2.6. He had challenges during this study, was uncomfortable and claustrophobic using a nasal mask, had difficulty with PAP therapy in general, leading to early switch to BiPAP which might have contributed to his treatment emergent central apneas. On BiPAP 10/6, the patient had 48.5 minutes in bed, 1.5 minutes awake, 15 minutes in non-REM and 32 minutes in REM. His sleep efficiency was 96.9%. His residual apnea-hypopnea index was 20.4. The majority of these events were centrals and mixed apneas, a total of 8 centrals, 2 mixed apneas and 6 hypopneas. I am recommending this patient be treated with BiPAP 10/6 using the medium ResMed AirFit F20 fullface mask which he used during the study. The patient should be prescribed this ResMed equipment as well as tubing, filters and reservoir. This should be used with all episodes of sleep. Compliance should be reviewed within 31-90 days of starting therapy for usage greater than 4 hours per night greater than 70% of the nights. The patient should be asked about symptoms such as excessive daytime sleepiness, quality of sleep, decreased nocturia, increased mental functioning such as memory, mood, and concentration. If he can acclimate to using BiPAP 10/6, his apnea-hypopnea index is expected to improve within 1-2 months, probably with resolution of all of his events. The majority of his events at this setting were centrals. He had supine REM at this setting with lowest saturation 89%. This was the best sleep of the night. Most of the night, sleep was fragmented with constant shifts between wake, stage I and stage II. I am adding some information to help with his ability to adjust to using his new BiPAP. The [facility] website has this excellent guide for patients. I am crediting them for this information below. 5-Step PAP Desensitization Plan ? STEP 1: Hold the mask to your face for a few moments without attaching the mask to the hose. Then practice putting the mask on and off several times. Practice: daytime, one or several days until you are feeling more comfortable. ? STEP 2: Wear your mask attached to the PAP device with the airflow turned on. Practice using PAP during the day while doing something relaxing and enjoyable such as reading, watching TV, or doing a relaxation exercise. *See below for relaxation exercise resources Practice: daytime, 20-30 minutes/day, daily for one week or until you are feeling more comfortable. ? STEP 3: Continue to wear your mask attached to the PAP device with the airflow turned on. Now extend the time you do this for an hour or two each day while doing something relaxing and enjoyable like watching a movie or a sports broadcast, reading or playing a game. You can also try lying down or reclining in this step. Practice: daytime, up to 1-2 hours/day, daily for one week or until you are feeling more comfortable. If you are short on time, try for 40-60 minutes of practice. Tip: If you feel any anxiety or frustration creeping in, you can also use additional relaxation strategies, such as listening to calming sounds or music, guided meditation, muscle relaxation or soothing imagery . ? STEP 4. If you?re trying to avoid naps, you can skip Step 4. Wear your mask attached to the PAP device with the airflow turned on. Take a short nap. Practice using PAP at any time when feeling sleepy or likely to fall asleep in the daytime. Practice: daytime, daily or on days you take a nap, for several days up to a week, until you are feeling more comfortable. ? STEP 5. Use your PAP at bedtime. Wear your mask attached to the PAP device with the airflow turned on when you go to sleep. Start every night with your mask on and the PAP device turned on. At first, try to use your PAP as long as it is comfortable. Try increasing to 4 or more hours and then to the entire time you?re asleep. Practice: during sleep time, daily, continuing to use it every time you sleep Tip: If you take your mask off during sleep, don?t worry about it. Put it back on when you notice that it?s off; or just try again the next time you sleep. Additional Steps to Get Comfortable with PAP If you need more practice getting used to your PAP, you can add one or more of these additional steps: ? If just looking at the PAP makes you uneasy or anxious: o Put the PAP device with mask and hose on a table in a room where you spend time when you are awake. Make sure you can see it as you?re doing relaxing and enjoyable activities. Over time, your brain and body will get used to seeing it in your environment, and you will feel less anxious around your PAP. o Put the PAP device with mask and hose in the bedroom where you would keep it when sleeping. Keep it here for a few days or more as you get used to seeing it in your bedroom. ? If you fall asleep with PAP on but wake up with the mask out of place: o Practice adjusting the mask with the hose attached ? don?t attach the hose to your machine. o Take the mask on and off repeatedly. o Practice while lying down and rolling around in bed to disrupt and repair mask seal. o During the day, practice putting your PAP on and taking it off in a dark room or with your eyes closed. This will help you to more easily put it back on during the night after waking with the mask off, or if you take it off when you get out of bed. ? If you have difficulty with the CPAP while lying flat: Use pillows or a wedge to practice sleeping with the PAP while reclined. Make sure this position is comfortable with any injuries you may have. ? If the sound of the PAP makes you uneasy or anxious: During the day, let the PAP device run while you are doing something relaxing and enjoyable (don?t worry if your device turns off automatically). Turn the machine on while you are sleeping without wearing the mask. Let the PAP device run to get used to the sound (don?t worry if your device turns off automatically). ? The [facility] ([facility]) has a number of free resources for relaxation techniques. You can use relaxation techniques such as muscle relaxation, guided imagery or mindfulness meditation while practicing using PAP. These and other free [place] apps are available on [employer] or [employer] Play (2) Treatment-emergent central sleep apnea: Code(s): T81.89XA - Other complications of procedures, not elsewhere classified, initial encounter; G47.33 - Obstructive sleep apnea (adult) (pediatric); G47.37 - Central sleep apnea in conditions classified elsewhere Status: Acute Assessment and Plan: His baseline central apnea index was 4.2, and during treatment his central AHI was 41.3. The patient could not tolerate CPAP and was immediately switched to BiPAP at the early portion of the titration. BiPAP is more likely to provoke central apneas however at BiPAP 10/6 his central apneas were minimized. Another possible acceptable pressures BiPAP 11/7. Patient had 100% sleep efficiency at that setting, 32 minutes in non REM with a residual apnea-hypopnea index of 9.4 comprised of 3 centrals and 2 mixed apneas. Data The data obtained during this sleep study is adequate for interpretation. Certification This sleep study has been reviewed by a board certified sleep medicine physician.
[2025-03-04 14:47] VITALS: BMI 25.7
== END 2025-02-10 07:03 | disposition home or self-care (01) ==
PROVIDERS: PCP Internal Medicine; Visit Provider Nurse Practitioner
DX: G47.19 Other hypersomnia (principal); G47.33 Obstructive sleep apnea (adult) (pediatric)
CPT/HCPCS: 95811